=== PATIENT | female | born 1970 | race Caucasian/White ===

== ENCOUNTER 2022-02-10 07:11 | Day surgery (SDC) | payer MEDICAID ==
[~2022-02-10 07:11] MED LIST: Bupivacaine 0.5% 30 ML SDV ONE
[2022-02-10] MEDS ORDERED: Nozin Nasal Sanitizer NASBOTH ONE (07:15)
[2022-02-10] MEDS ORDERED: fentaNYL 100 MCG/2 ML SDV ONE ×2 (07:30→09:51)
[2022-02-10] MEDS ORDERED: Propofol 200 MG/20 ML SDV ONE (07:30)
[2022-02-10] MEDS ORDERED: Midazolam 1 MG/ML 2 ML SDV ONE (07:31)
[2022-02-10] MEDS ORDERED: Lactated Ringers 1,000 ML IV SCH (08:15)
[2022-02-10] MEDS ORDERED: ceFAZolin 1 GM in Premix Bag 1 BAG IV ONE (08:30)
[2022-02-10] MEDS ORDERED: Dexamethasone 4 MG/ML SDV ONE (09:51)
[2022-02-10] MEDS ORDERED: Ketorolac 30 MG/ML SDV ONE (09:51)
[2022-02-10] MEDS ORDERED: Ondansetron 4 MG/2 ML SDV ONE (09:51)
[2022-02-10] MEDS ORDERED: Bupivacaine 0.5% 30 ML SDV INJECT ONE (10:25)
[2022-02-10] MEDS ORDERED: traMADol 50 MG Tab PO PRN (11:35)
== END 2022-02-10 12:30 | disposition home or self-care (01) ==
LOC: JP.SDS 07:11
PROVIDERS: ATTEND Specialist
DX: S83.241A Other tear of medial meniscus, current injury, right knee, initial encounter (principal); M22.41 Chondromalacia patellae, right knee; Z79.810 Long term (current) use of selective estrogen receptor modulators (SERMs); Z79.899 Other long term (current) drug therapy; Z79.83 Long term (current) use of bisphosphonates
CPT/HCPCS: 29881; 36415; 80048; 85025; A9270; J0690; J1100; J1885; J2250; J2405; J2704; J3010; J3490; J7120